=== PATIENT | female | born 1995 | race Caucasian/White ===

== ENCOUNTER → 2017-07-12 | Outpatient (CLI) | payer OTHER ==
[~2017-07-12] MED LIST: CALC600T9 PO; CETI10TA84 PO; FLUT0.15 NAE
--- NOTE | 2017-07-16 12:35 | PULMONARY FUNCTION TEST ---
Spirometry is normal. Repeat study done following bronchodilators showed a decline in FEV1 of 18%. The flow volume loops, however, suggest the patient did not optimally perform the postbronchodilator study. Advised clinical correlation.
== END | disposition home or self-care (01) ==
LOC: C.RC 10:10
PROVIDERS: ATTEND Family Medicine
DX: R06.2 Wheezing (principal)

== ENCOUNTER 2017-08-03 18:07 | Emergency (ER) | payer OTHER ==
[~2017-08-03] VITALS: Ht 160 cm; Wt 84.2 kg
[2017-08-03 18:15] VITALS: TEMP 36.8; Ht 160 cm; Wt 84.2 kg
[2017-08-03] MEDS ORDERED: OPTIRAY 320 IV PRN (19:30)
[2017-08-03 20:00] LABS: BASO % 0.1 %; BASO ABS # 0.01 K/uL (0-0.2); EOS % 2.3 %; EOS ABS # 0.22 K/uL (0-0.5); HEMOGLOBIN 13.5 g/dL (12.0-16.0); IG# 0.02 K/uL (0.00-0.02); LYMPH % 21.6 %; LYMPH ABS # 2.06 K/uL (1.2-3.4); MEAN CELL VOLUME 89.7 fL (80-100); MEAN CORPUSCULAR HGB CONC 34.6 g/dl (32-36); MEAN PLATELET VOLUME 10.9 fL (7.4-10.4); MONO % 6.9 %; MONO ABS # 0.66 K/uL (0.11-0.59); NEUT % 68.9 %; NEUT ABS # 6.58 K/uL (1.4-6.5); PLATELET COUNT 283 K/uL (130-400); RED CELL DISTRIBUTION WIDTH CV 12.5 % (11.5-14.5); RED CELL DISTRIBUTION WIDTH SD 40.6 fL (36.4-46.3); WHITE BLOOD COUNT 9.55 K/uL (4.8-10.8)
[2017-08-03 20:10] LABS: CALCIUM 8.9 mg/dl (8.5-10.1); CREATININE 0.75 mg/dl (0.60-1.20); POTASSIUM 3.6 mmol/L (3.5-5.1)
[2017-08-03 20:19] LABS: PTT PATIENT 24.5 SECONDS (21.0-31.0)
[2017-08-03] MEDS ORDERED: KETOROLAC TROMETHAMINE 30 MG/ML VIAL IV STA (20:40)
--- NOTE | 2017-08-03 20:53 | DIAGNOSTIC IMAGING REPORT ---
CT ANGIOGRAPHY OF THE CHEST, PULMONARY EMBOLUS PROTOCOL CLINICAL HISTORY: Chest pain. Positive d-dimer. COMPARISON STUDY: No previous studies for comparison. TECHNIQUE: Following IV administration of 94 mL of Optiray-320, helical axial images of the chest were obtained utilizing the pulmonary embolus protocol. Maximal intensity projections and sagittal and coronal reformats were viewed on an independent 3D workstation. IV contrast was administered without complication. A dose lowering technique was utilized adhering to the principles of ALARA. CT DOSE: 337.51 mGy.cm FINDINGS: No pulmonary emboli are identified. The size of the heart is at the upper limits of normal. There is no thoracic aortic dissection. There is no pericardial effusion. No pneumothorax or pleural effusion is present. There is no consolidation to suggest pneumonia. Mild groundglass opacities favor atelectasis. Bony thorax and upper abdomen are unremarkable. IMPRESSION: 1. No pulmonary emboli identified. 2. No acute intrathoracic findings. Electronically signed by: Al Balbuena M.D. 08/03/2017 8:52 PM Dictated Date/Time: 08/03/2017 8:44 PM
[2017-08-03] MEDS ORDERED: BUPR-79 PO (20:58)
[2017-08-03] MEDS ORDERED: FLVHFA110 INH (20:58)
[2017-08-03] MEDS ORDERED: CITA20TA9 PO (20:58)
[2017-08-03] MEDS ORDERED: BCPILLS PO (20:58)
[2017-08-03 21:32] VITALS: BP 118/79; PULSE 80; O2SAT 99
--- NOTE | 2017-08-04 00:33 | EMERGENCY ROOM VISIT NOTE ---
History Report prepared by Rosemary: Cally Brooks Under the Supervision of: Dr. Fahad Corbin M.D. First contact with patient: 18:26 Chief Complaint: REFERRED BY DOCTOR Stated Complaint: SQUEEZING PAIN IN LUNGS History of Present Illness The patient is a 22 year old female who presents to the Emergency Room with complaints of worsening back pain starting 2 years ago. The patient was seen at [facility] today. She had a chest X-ray and urine test which was negative. She was sent to the ED after her D dimer was found to be positive. She describes the pain as squeezing in her lungs. She has had this pain everyday for 2 years. She reports that the pain can start while she is just sitting. It is in her mid back bilaterally. It has been worsening recently. She had difficulty falling asleep last night because of the pain. The pain was initially only on the left side, but became bilateral last month. She has had some leg pain with walking. She denies any leg swelling. She denies any chest pain, SOB, fever, cough, abdominal pain, or urinary symptoms. She denies any recent immobilization or long trips. She denies any falls. She does not smoke. She is on control. She denies any increased activity. She does bend over sometimes at work. She has a history of lower back pain for which she goes to physical therapy. She has a history of asthma. She denies any family history of blood clots. Source of History: patient Onset: 2 years ago Position: other (lung) Quality: other (squeezing) Timing: worsening Associated Symptoms: + back pain, No fevers, No cough, No chest pain, No SOB , No abdominal pain, No urinary symptoms Review of Systems See HPI for pertinent positives & negatives. A total of 10 systems reviewed and were otherwise negative. Past Medical & Surgical Medical Problems: (1) Asthma (2) No pertinent past medical history Family History Diabetes mellitus Heart disease Hypertension Social History Smoking Status: Never Smoker Marital Status: single Housing Status: lives with friends Occupation Status: [employer] student Current/Historical Medications Scheduled Control Pills ( Control Pills), 1 TAB PO DAILY Bupropion (Wellbutrin Sr), 150 MG PO DAILY Cetirizine (Zyrtec), 10 MG PO DAILY Citalopram Hydrobromide (Celexa), 20 MG PO DAILY Fluticasone Propionate (Flovent Hfa), 2 PUFFS INH BID Allergies Uncoded Allergies: ENVIRONMENTAL (Allergy, Mild, ., 01/16/16) Physical Exam Vital Signs Date Time Temp Pulse Resp B/P (MAP) Pulse Ox O2 Delivery O2 Flow Rate FiO2 08/03/17 21:32 80 18 118/79 99 08/03/17 19:58 91 18 113/85 99 Room Air 08/03/17 18:15 36.8 98 18 119/76 97 Room Air Physical Exam Constitutional: Vital signs reviewed. Eyes: Pupils are equal round reactive to light. Conjunctiva are noninjected. ENT: Pharynx is clear without erythema or exudate. Mucous membranes are moist. Neck supple without meningeal signs. Respiratory: Clear to auscultation bilaterally. Breath sounds are equal bilaterally. Cardiovascular: Regular rate and rhythm. No rubs or gallops. GI: Soft, nondistended and nontender. Bowel sounds are present. Musculoskeletal: No peripheral edema. No lower extremity tenderness. Tenderness to the posterior bilateral lower ribs without crepitus. No midline tenderness to the thoracic or lumbosacral spine. Integumentary: No cyanosis. Neurological: The patient is awake and alert. No focal deficits. Psychiatric: Normal affect. Medical Decision & Procedures ER Provider Diagnostic Interpretation: Radiology results as stated below per my review and the radiologist's interpretation: CT ANGIOGRAPHY OF THE CHEST, PULMONARY EMBOLUS PROTOCOL CLINICAL HISTORY: Chest pain. Positive d-dimer. COMPARISON STUDY: No previous studies for comparison. TECHNIQUE: Following IV administration of 94 mL of Optiray-320, helical axial images of the chest were obtained utilizing the pulmonary embolus protocol. Maximal intensity projections and sagittal and coronal reformats were viewed on an independent 3D workstation. IV contrast was administered without complication. A dose lowering technique was utilized adhering to the principles of ALARA. CT DOSE: 337.51 mGy.cm FINDINGS: No pulmonary emboli are identified. The size of the heart is at the upper limits of normal. There is no thoracic aortic dissection. There is no pericardial effusion. No pneumothorax or pleural effusion is present. There is no consolidation to suggest pneumonia. Mild groundglass opacities favor atelectasis. Bony thorax and upper abdomen are unremarkable. IMPRESSION: 1. No pulmonary emboli identified. 2. No acute intrathoracic findings. Electronically signed by: Al Balbuena M.D. 08/03/2017 8:52 PM Dictated Date/Time: 08/03/2017 8:44 PM Laboratory Results 08/03/17 17:30 Red Blood Count 4.35, Mean Corpuscular Volume 89.7, Mean Corpuscular Hemoglobin 31.0, Mean Corpuscular Hemoglobin Concent 34.6, Mean Platelet Volume 10.9, Neutrophils (%) (Auto) 68.9, Lymphocytes (%) (Auto) 21.6, Monocytes (%) (Auto) 6.9, Eosinophils (%) (Auto) 2.3, Basophils (%) (Auto) 0.1, Neutrophils # (Auto) 6.58, Lymphocytes # (Auto) 2.06, Monocytes # (Auto) 0.66, Eosinophils # (Auto) 0.22, Basophils # (Auto) 0.01 08/03/17 17:30 Test 08/03/17 17:30 08/03/17 19:33 White Blood Count 9.55 K/uL (4.8-10.8) Red Blood Count 4.35 M/uL (4.2-5.4) Hemoglobin 13.5 g/dL (12.0-16.0) Hematocrit 39.0 % (37-47) Mean Corpuscular Volume 89.7 fL (80-100) Mean Corpuscular Hemoglobin 31.0 pg (25-34) Mean Corpuscular Hemoglobin Concent 34.6 g/dl (32-36) Platelet Count 283 K/uL (130-400) Mean Platelet Volume 10.9 fL (7.4-10.4) Neutrophils (%) (Auto) 68.9 % Lymphocytes (%) (Auto) 21.6 % Monocytes (%) (Auto) 6.9 % Eosinophils (%) (Auto) 2.3 % Basophils (%) (Auto) 0.1 % Neutrophils # (Auto) 6.58 K/uL (1.4-6.5) Lymphocytes # (Auto) 2.06 K/uL (1.2-3.4) Monocytes # (Auto) 0.66 K/uL (0.11-0.59) Eosinophils # (Auto) 0.22 K/uL (0-0.5) Basophils # (Auto) 0.01 K/uL (0-0.2) RDW Standard Deviation 40.6 fL (36.4-46.3) RDW Coefficient of Variation 12.5 % (11.5-14.5) Immature Granulocyte % (Auto) 0.2 % Immature Granulocyte # (Auto) 0.02 K/uL (0.00-0.02) Prothrombin Time 10.1 SECONDS (9.0-12.0) Prothromb Time International Ratio 1.0 (0.9-1.1) Activated Partial Thromboplast Time 24.5 SECONDS (21.0-31.0) Partial Thromboplastin Ratio 0.9 Anion Gap 4.0 mmol/L (3-11) Est Creatinine Clear Calc Drug Dose 123.0 ml/min Estimated GFR () 133.0 Estimated GFR (Non- 114.7 BUN/Creatinine Ratio 14.4 (10-20) Calcium Level 8.9 mg/dl (8.5-10.1) Urine Test NEG (NEG) Laboratory results as reviewed by me. Medications Administered Medications (Trade) Dose Ordered Sig/Samara Route Start Time Stop Time Status Last Admin Dose Admin Ketorolac Tromethamine (Toradol Inj) 30 mg NOW STAT IV 08/03/17 20:40 08/03/17 20:41 DC 08/03/17 20:47 30 MG ED Course 1912: The patient was evaluated in room A9B. A complete history and physical exam was performed. 2039: Toradol Inj 30 mg IV. 2121: Upon reevaluation, the patient appeared to have improvement of her symptoms. I discussed tonight's findings with her. She verbalized agreement of the treatment plan. She was discharged home. Medical Decision This is a 22-year-old female presents with bilateral lower rib pain. Differential diagnosis includes pleurisy, rib fracture, pathologic fracture, pleural effusion, mass, pulmonary embolism. I did perform a limited focused review of portions of the patient's old chart on the electronic medical record. The patient was seen here in 2016 for left flank pain and had a CT abdomen pelvis which was unremarkable. I did evaluate the patient as noted above. The patient is presenting with bilateral lower rib pain posteriorly for the past 2 years. She states she has had it every day for 2 years. It is very reproducible on palpation of her back. She was, however, sent here for CT scanning of her chest because of a positive d-dimer drawn at [facility]. IV access was established. Patient was treated with Toradol IV. I did review the patient's blood work as noted in the electronic medical record. I did order a CT of the chest. I did review the images myself as well as the radiology report as described above. There is no evidence of pulmonary embolism or acute abnormality. The patient was informed of her test results. She was advised to follow-up closely with her doctor and to take anti-inflammatories for pain control. She was discharged in good condition. Medication Reconcilliation Current Medication List: was personally reviewed by me Blood Pressure Screening Patient's blood pressure: Normal blood pressure Blood pressure disposition: Did not require urgent referral Impression Primary Impression: Rib pain Scribe Attestation The scribe's documentation has been prepared under my direct and personally reviewed by me in its entirety. I confirm that the note above accurately reflects all work, treatment, procedures, and medical decision making performed by me. Departure Information Dispostion Home / Self-Care Referrals Brook Obrien M.D. (PCP) Forms HOME CARE DOCUMENTATION FORM, IMPORTANT VISIT INFORMATION, WORK / SCHOOL INSTRUCTIONS Patient Instructions My [facility] Additional Instructions You were admitted to the ED for the evaluation of an elevated DDimer. As you have been having pain concerning for a pulmonary embolus ( blood clot in lung) you were advised to come to the ED for further evaluation. The blood work had no indication of any infection and electrolytes were normal. A CT scan of the chest did not reveal any acute findings nor a pulmonary embolus. There is no indication to start a blood thinner at this time. We recommen you follow up with your PCP in the next week. If you develop worsening symptoms, shortness of breath, fever > 101F please return to the ED for evaluation
== END 2017-08-03 21:32 | disposition home or self-care (01) ==
LOC: C.EDB 18:08 → C.EDA 21:32
DX: R07.81 Pleurodynia (principal); R79.1 Abnormal coagulation profile; J45.909 Unspecified asthma, uncomplicated; Z79.3 Long term (current) use of hormonal contraceptives; Z79.899 Other long term (current) drug therapy; Z91.048 Other nonmedicinal substance allergy status; Z83.3 Family history of diabetes mellitus; Z82.49 Family history of ischemic heart disease and other diseases of the circulatory system